=== PATIENT | male | born 1985 | race Hispanic/Latino ===

== ENCOUNTER 2022-08-21 21:39 | Observation (INO) | payer OTHER ==
[2022-08-21] MEDS ORDERED: ASPIRIN 81 MG CHEWABLE TABLET ONE (22:05)
[2022-08-21] MEDS ORDERED: MORPHINE 4 MG/ML SYR ONE ×2 (22:18→23:18)
[2022-08-21] MEDS ORDERED: ONDANSETRON 4 MG/2 ML VIAL ONE (22:18)
[2022-08-21 22:30] LABS: Absolute Lymphocytes (CBC) 1.2 K/uL (0.7-4.9); Hematocrit 38.4 % (39.6-49.0); Lymphocytes % 23.3 % (15.3-44.8); MCV 76.1 fL (80-100); MPV 6.9 fL (7.6-11.3); RBC Red Blood Cell Count 5.04 M/uL (4.33-5.43)
--- NOTE | 2022-08-21 22:38 | RAD REPORT ---
EXAM DESCRIPTION: Noe Single View08/21/2022 10:27 pm CLINICAL HISTORY: Chest pain COMPARISON: none FINDINGS: The lungs appear clear of acute infiltrate. The heart is normal size IMPRESSION: No acute abnormalities displayed
[2022-08-21 22:50] LABS: ALT/SGPT 25 U/L (12-78); AST/SGOT 10 U/L (15-37); Albumin 4.1 g/dL (3.4-5.0); Alkaline Phosphatase 89 U/L (45-117); BUN Blood Urea Nitrogen 13 mg/dL (7-18); Bicarbonate 30 mmol/L (21-32); Bilirubin Direct < 0.1 mg/dL (0-0.2); Bilirubin Total 0.2 mg/dL (0.2-1.0); Glomerular Filtration Rate 87 ml/min (=/>90); Glucose Level 72 mg/dL (74-106); NT PRO-BNP < 5 pg/mL (<125); Potassium 3.7 mmol/L (3.5-5.1); Sodium Level 139 mmol/L (136-145); Troponin High Sensitivity 4.9 pg/mL (<58.9)
[2022-08-21 23:18] LABS: Protime INR 2.06
[2022-08-21 23:39] LABS: Barbiturates NEGATIVE (NEGATIVE); Benzodiazepines NEGATIVE (NEGATIVE); Cocaine NEGATIVE (NEGATIVE); METHAMPHETAM NEGATIVE (NEGATIVE); Methadone NEGATIVE (NEGATIVE); Opiates POSITIVE (NEGATIVE); Phencyclidine NEGATIVE (NEGATIVE); THC Cannibis NEGATIVE (NEGATIVE)
--- NOTE | 2022-08-22 00:20 | ER ---
Nurse's Notes [facility] Name: Juanpablo Dewitt Age: 37 yrs Sex: Male : 1985 Arrival Date: 08/21/2022 Time: 21:40 Bed 13 Private MD: Diagnosis: Chest pain, unspecified;Syncope Presentation: 08/21 21:50 Chief complaint: Sudden onset left sided chest pain that radiates to left arm and neck hb x 1 hour. Pain partially and briefly relieved by Nitro SL x 4. Hx of [place]. Coronavirus screen: At this time, the client does not indicate any symptoms associated with coronavirus-19. Ebola Screen: No symptoms or risks identified at this time. Risk Assessment: Do you want to hurt yourself or someone else? Patient reports no desire to harm self or others. Onset of symptoms was August 21, 2022. 21:50 Method Of Arrival: Wheelchair hb 21:50 Acuity: ERIBERTO 3 hb 23:06 Initial Sepsis Screen: Does the patient meet any 2 criteria? No. Patient's initial ha1 sepsis screen is negative. Does the patient have a suspected source of infection? No. Patient's initial sepsis screen is negative. Historical: - Allergies: 21:52 Iodinated Contrast Media - IV Dye; hb 21:52 Iodine; hb 21:52 NSAIDS; hb 21:52 Aspirin; hb 21:52 ACETAMINOPHEN; hb 21:52 tramadol; hb 21:52 Adhesives; hb 21:52 PORK/PORCINE PRODUCT DERIVATIVES; hb 21:52 KETAMINE; hb - PMHx: 21:52 Myocardial infarction; hb Screenin:50 Abuse screen: Denies threats or abuse. Denies injuries from another. Nutritional ha1 screening: No deficits noted. Tuberculosis screening: No symptoms or risk factors identified. Assessment: 21:50 General: Appears uncomfortable, Behavior is calm, cooperative. Pain: Complains of pain ha1 in chest Pain does not radiate. Pain at worst was 10 out of 10 on a pain scale. Quality of pain is described as pressure, Pain began suddenly. Neuro: Level of Consciousness is awake, alert, obeys commands, Oriented to person, place, time, situation. Cardiovascular: Reports chest pain, Heart tones S1 S2 present Capillary refill < 3 seconds Patient's skin is warm and dry. Respiratory: Airway is patent Trachea midline Respiratory effort is even, unlabored, Respiratory pattern is regular, symmetrical. GI: No signs and/or symptoms were reported involving the gastrointestinal system. Abdomen is non-distended, obese. : No signs and/or symptoms were reported regarding the genitourinary system. EENT: No deficits noted. No signs and/or symptoms were reported regarding the EENT system. Derm: Skin is normal. Musculoskeletal: Circulation, motion, and sensation intact. Range of motion: intact in all extremities. 22:45 Reassessment: Patient and/or family updated on plan of care and expected duration. Pain ha1 level reassessed. Patient is alert, oriented x 3, equal unlabored respirations, skin warm/dry/pink. pain 5/10 Patient states feeling better. 23:07 General: Patient requested more pain medication. Provider notified.. tw5 23:38 Reassessment: Patient and/or family updated on plan of care and expected duration. Pain ha1 level reassessed. Patient is alert, oriented x 3, equal unlabored respirations, skin warm/dry/pink. pain 6/10 Patient states feeling better. 08/22 00:35 Reassessment: Patient and/or family updated on plan of care and expected duration. Pain ha1 level reassessed. Patient is alert, oriented x 3, equal unlabored respirations, skin warm/dry/pink. getting ultrasound. Vital Signs: 08/21 21:50 BP 139 / 71; Pulse 90; Resp 16; Temp 97.1; Pulse Ox 100% on R/A; Weight 104.33 kg; hb Height 5 ft. 10 in. (177.80 cm); Pain 10/10; 22:15 BP 109 / 50; Pulse 81; Resp 16 S; Pulse Ox 98% on R/A; ha1 22:45 BP 117 / 62; Pulse 79; Resp 16 S; Pulse Ox 100% on R/A; ha1 23:38 BP 118 / 60; Pulse 80; Resp 17 S; Pulse Ox 100% on R/A; ha1 08/22 00:35 BP 116 / 62; Pulse 79; Resp 16 S; Pulse Ox 100% on R/A; ha1 08/21 21:50 Body Mass Index 33.00 (104.33 kg, 177.80 cm) ED Course: 08/21 21:40 Patient arrived in ED. as 21:52 Triage completed. hb 21:53 Arm band placed on. hb 21:53 Patient has correct armband on for positive identification. Allergy band placed. Bed in ha1 low position. Call light in reach. Side rails up X 1. 21:57 Sg Barry PA is PHCP. cp 21:57 Gertrude Artis MD is Attending Physician. cp 22:27 XRAY Chest (1 view) In Process Unspecified. EDMS 23:23 XRAY Humerus LEFT In Process Unspecified. EDMS 23:37 Notified ED physician of a critical lab result(s). D-Dimer 564. tw5 23:44 CT Head C Spine In Process Unspecified. EDMS 08/22 00:19 Julio Ly MD is Hospitalizing Provider. cp 00:22 Gabe Doran is Hospitalizing Provider. la1 00:42 US Extremity Venous W Compression Malick In Process Unspecified. EDMS 01:34 Marcy Shah, ANAT is Primary Nurse. ke1 20:58 Patient admitted, IV remains in place. ke1 Administered Medications: 08/21 22:23 Drug: Zofran (Ondansetron) 4 mg Route: IVP; Site: right antecubital; ha1 22:45 Follow up: Response: No adverse reaction ha1 22:25 Drug: morphine 4 mg Route: IVP; Infused Over: 4 mins; Site: right antecubital; ha1 22:45 Follow up: Response: No adverse reaction; Temperature is decreased; RASS: Alert and ha1 Calm (0) 22:26 Not Given (Pt is allergicc): Aspirin Chewable Tablet 324 mg PO once; 81 mg tablets x 4 jb4 23:16 Drug: morphine 4 mg Route: IVP; Infused Over: 4 mins; Site: right antecubital; ha1 23:38 Follow up: Response: No adverse reaction; Pain is decreased; RASS: Alert and Calm (0) ha1 Medication: 08/22 20:58 VIS not applicable for this client. ke1 Outcome: 00:20 Decision to Hospitalize by Provider. cp 20:58 Admitted to Med/surg accompanied by nurse. ke1 20:58 Condition: good 20:58 Instructed on the need for admit. 20:58 Patient left the ED. ke1 Signatures: Dispatcher [employer] EDBreana Saavedra Attema, Michelet, PADDER-C PADDER-Cla1 Sg Barry PA PA cp Baxter, Heather, RN RN Carline Martinez tw5 Marcy Shah RN RN ke1 Denae Chou RN RN ha1 Ab Bloom RN jb4
--- NOTE | 2022-08-22 00:21 | EDPHYS ---
Physician Documentation [facility] Name: Juanpablo Dewitt Age: 37 yrs Sex: Male : 1985 Arrival Date: 08/21/2022 Time: 21:40 Bed 13 Private MD: ED Physician Gertrude Artis HPI: 08/21 22:00 This 37 yrs old Male presents to ER via Wheelchair with complaints of Chest cp Pain, Shortness Of Breath, Passed Out Prior To Arrival. 22:00 The patient or guardian reports chest pain that is located primarily in the anterior cp chest wall, left. 22:00 The pain radiates to cp 22:00 Associated signs and symptoms: Pertinent positives: syncope. The chest pain is cp described as constant. Patient reports left side chest pain started this evening. Pain started causing patient to lose consciousness. Historical: - Allergies: 21:52 Iodinated Contrast Media - IV Dye; hb 21:52 Iodine; hb 21:52 NSAIDS; hb 21:52 Aspirin; hb 21:52 ACETAMINOPHEN; hb 21:52 tramadol; hb 21:52 Adhesives; hb 21:52 PORK/PORCINE PRODUCT DERIVATIVES; hb 21:52 KETAMINE; hb - PMHx: 21:52 Myocardial infarction; hb ROS: 22:05 Constitutional: Negative for body aches, chills, fever, poor PO intake. cp 22:05 Cardiovascular: Positive for chest pain, Negative for edema, palpitations. cp 22:05 Eyes: Negative for injury, pain, redness, and discharge. cp 22:05 ENT: Negative for drainage from ear(s), ear pain, sore throat, difficulty swallowing, difficulty handling secretions. 22:05 Respiratory: Positive for shortness of breath, Negative for cough, wheezing. 22:05 Abdomen/GI: Positive for nausea, Negative for abdominal pain, vomiting, diarrhea, cp constipation. 22:05 MS/extremity: Positive for injury or acute deformity, ecchymosis, of the left arm, radiating pain. 22:05 Neuro: Positive for headache, syncope, Negative for altered mental status, numbness, weakness. 22:05 All other systems are negative. Exam: 22:05 ECG was reviewed by the Attending Physician. cp 22:11 Constitutional: The patient appears in no acute distress, alert, awake, cp non-diaphoretic, non-toxic, well developed, well nourished. 22:11 Head/Face: Normocephalic, atraumatic. cp 22:11 Eyes: Periorbital structures: appear normal, Conjunctiva: normal, no exudate, no injection, Sclera: no appreciated abnormality, Lids and lashes: appear normal, bilaterally. 22:11 ENT: External ear(s): are unremarkable, Nose: is normal, Mouth: Lips: moist, Oral mucosa: pink and intact, moist, Posterior pharynx: Airway: no evidence of obstruction, patent. 22:11 Neck: ROM/movement: is normal, is supple, without pain, no range of motions limitations, no nuchal rigidity. 22:11 Chest/axilla: Inspection: normal, Palpation: is normal, no crepitus, no tenderness. 22:11 Cardiovascular: Rate: normal, Rhythm: regular, Edema: is not appreciated, JVD: is not appreciated. 22:11 Respiratory: the patient does not display signs of respiratory distress, Respirations: normal, no use of accessory muscles, no retractions, labored breathing, is not present, Breath sounds: are clear throughout, no decreased breath sounds, no stridor, no wheezing. 22:11 Abdomen/GI: Inspection: abdomen appears normal, Palpation: abdomen is soft and non-tender, in all quadrants. 22:11 Back: pain, that is moderate, ROM is normal. 22:11 Neuro: Orientation: to person, place \T\ time. Mentation: is normal, Motor: moves all fours, strength is normal, Sensation: is normal. Vital Signs: 21:50 BP 139 / 71; Pulse 90; Resp 16; Temp 97.1; Pulse Ox 100% on R/A; Weight 104.33 kg; hb Height 5 ft. 10 in. (177.80 cm); Pain 10/10; 22:15 BP 109 / 50; Pulse 81; Resp 16 S; Pulse Ox 98% on R/A; ha1 22:45 BP 117 / 62; Pulse 79; Resp 16 S; Pulse Ox 100% on R/A; ha1 23:38 BP 118 / 60; Pulse 80; Resp 17 S; Pulse Ox 100% on R/A; ha1 08/22 00:35 BP 116 / 62; Pulse 79; Resp 16 S; Pulse Ox 100% on R/A; ha1 08/21 21:50 Body Mass Index 33.00 (104.33 kg, 177.80 cm) hb MDM: 08/21 22:06 Patient medically screened. cp 23:50 Data reviewed: vital signs, nurses notes, lab test result(s), EKG, radiologic studies, cp plain films. 23:50 Test interpretation: by ED physician or midlevel provider: ECG, plain radiologic cp studies. 08/21 21:53 Order name: Basic Metabolic Panel; Complete Time: 22:53 sd2 08/21 22:53 Interpretation: Normal except: GLUC 72; GFR 87. cp 08/21 21:53 Order name: CBC with Diff; Complete Time: 22:53 sd2 08/21 22:54 Interpretation: Normal except: HGB 12.4; HCT 38.4; MCV 76.1; MCH 24.6; RDW 19.3; MPV cp 6.9. 08/21 21:53 Order name: LFT's; Complete Time: 22:53 sd2 08/21 22:54 Interpretation: Normal except: AST 10; GLOB 3.9. cp 08/21 21:53 Order name: Magnesium; Complete Time: 22:53 sd2 08/21 21:53 Order name: NT PRO-BNP; Complete Time: 22:53 sd2 08/21 21:53 Order name: Troponin HS; Complete Time: 22:53 sd2 08/21 22:55 Interpretation: Within normal limits: Troponin HS 4.9. cp 08/21 22:08 Order name: UDS; Complete Time: 23:39 cp 08/21 23:40 Interpretation: OPI POSITIVE; Reviewed. cp 08/21 22:08 Order name: COVID-19/FLU A+B cp 08/21 22:08 Order name: Ptt, Activated; Complete Time: 22:53 cp 08/21 22:54 Interpretation: PTT 52.8; Reviewed. cp 08/21 22:56 Order name: PT-INR; Complete Time: 23:39 cp 08/21 22:56 Order name: DD; Complete Time: 23:39 cp 08/21 23:40 Interpretation: Abnormal: D-DIMER 564. cp 08/22 04:11 Order name: Protime (+INR) EDMS 08/22 04:23 Order name: CBC with Automated Diff EDMS 08/22 04:29 Order name: Comprehensive Metabolic Panel EDNM 08/21 21:53 Order name: XRAY Chest (1 view); Complete Time: 22:53 sd2 08/21 23:41 Interpretation: Report review. cp 08/21 21:53 Order name: EKG; Complete Time: 21:54 sd2 08/21 21:53 Order name: Cardiac monitoring; Complete Time: 22:01 sd2 08/21 21:53 Order name: EKG - Nurse/Tech; Complete Time: 22:01 sd2 08/21 21:53 Order name: IV Saline Lock; Complete Time: 22:36 sd2 08/21 21:53 Order name: Labs collected and sent; Complete Time: 22:36 sd2 08/21 21:53 Order name: O2 Per Protocol; Complete Time: 22:01 sd2 08/21 22:59 Order name: XRAY Humerus LEFT 08/21 22:59 Order name: CT Head C Spine 08/21 23:39 Order name: US Extremity Venous W Compression Malick 08/22 04:29 Order name: Troponin High Sensitivity [facility] 08/22 09:15 Order name: Troponin High Sensitivity [facility] 08/21 21:53 Order name: O2 Sat Monitoring; Complete Time: 22:01 sd2 EC:05 Rate is 78 beats/min. Rhythm is regular. MN interval is normal. QRS interval is normal. cp QT interval is normal. T waves are Inverted in leads III, aVR. Interpreted by me. Reviewed by me. Administered Medications: 22:23 Drug: Zofran (Ondansetron) 4 mg Route: IVP; Site: right antecubital; ha1 22:45 Follow up: Response: No adverse reaction ha1 22:25 Drug: morphine 4 mg Route: IVP; Infused Over: 4 mins; Site: right antecubital; ha1 22:45 Follow up: Response: No adverse reaction; Temperature is decreased; RASS: Alert and ha1 Calm (0) 22:26 Not Given (Pt is allergicc): Aspirin Chewable Tablet 324 mg PO once; 81 mg tablets x 4 jb4 23:16 Drug: morphine 4 mg Route: IVP; Infused Over: 4 mins; Site: right antecubital; ha1 23:38 Follow up: Response: No adverse reaction; Pain is decreased; RASS: Alert and Calm (0) ha1 Disposition Summary: 08/22/22 00:20 Hospitalization Ordered Condition: Stable cp Problem: new cp Symptoms: have improved cp Bed/Room Type: Standard cp Hospitalization Status: Observation(08/22/22 00:21) la1 Provider: Gabe Doran(08/22/22 00:22) la1 Location: Telemetry/MedSurg (observation)(08/22/22 18:00) eb Room Assignment: 403(08/22/22 18:00) eb Diagnosis - Chest pain, unspecified cp - Syncope cp Forms: - Medication Reconciliation Form cp - SBAR form cp Signatures: Dispatcher [employer] EDMS Michelet Coughlin, [place]-C [place]-Cla1 Sg Barry PA PA cp Garcia, Cindy, RN RN cg Nguyen Alexandre RN RN hb Botello, Elizabeth eb Dunlop, Stephanie, MD MD sd2 Denae Chou RN RN ha1 Ab Bloom RN jb4 Corrections: (The following items were deleted from the chart) 23:40 23:40 Reviewed. cp cp 08/22 00:21 00:20 Inpatient Admission cp la1 : 00:20 Julio Ly cp la1 00:30 08/21 22:05 Cardiovascular: Positive for chest pain, cp cp 08/22 00:59 00:20 Telemetry/MedSurg (observation) cp cg 00:59 00:20 cp cg 18:00 00:59 [facility] ER HOLD cg eb 18:00 00:59 ERHOLD- cg eb
[2022-08-22 00:43] LABS: SARS-COV-2 RT PCR NEGATIVE (NEGATIVE)
[2022-08-22] MEDS ORDERED: PROMETHAZINE 25 MG TABLET PO PRN (02:21)
[2022-08-22] MEDS ORDERED: ALBUTEROL 2.5 MG/3 ML NEB SOL NEB PRN (02:21)
--- NOTE | 2022-08-22 02:33 | P.HP ---
Certification for Inpatient Patient admitted to: Observation With expected LOS: <2 Midnights Patient will require the following post-hospital care: None Practitioner: I am a practitioner with admitting privileges, knowledge of patient current condition, hospital course, and medical plan of care. Services: Services provided to patient in accordance with Admission requirements found in Title 42 Section 412.3 of the Code of Federal Regulations Patient History Date of Service: 08/22/22 Reason for admission: Chest pain, syncope History of Present Illness: 37-year-old male with history of factor V Leiden, chronic CHFunknown EF, hypertension, hyperlipidemia, GERD, chronic pain, CAD, MIRA presents emergency department for chest pain, syncope. He reports that he was eating dinner when he began to experience sharp pain with severe heaviness in his chest followed by 2 syncopal episodes. He denies similar episodes in the past he reports he has been compliant with his Coumadin for factor V Leiden his labs were significant for INR 2.06 D-dimer 564 high-sensitivity troponin 4.9 initially chest x-ray negative for acute findings CT head/C-spine negative for acute findings, bilateral venous Doppler lower extremities negative for acute findings/DVT. Patient allergic to IV iodine, ED provider wishes to admit under observation for chest pain, syncope, elevated D-dimer. Allergies acetaminophen Allergy (Verified 08/22/22 02:21) Anaphylaxis adhesive Allergy (Verified 08/22/22 02:21) Anaphylaxis aspirin Allergy (Verified 08/22/22 02:21) Anaphylaxis Iodinated Contrast Media Allergy (Verified 08/22/22 02:21) Anaphylaxis ketamine Allergy (Verified 08/22/22 02:21) Anaphylaxis NSAIDS (Non-Steroidal Anti-Inflamma Allergy (Verified 08/22/22 02:21) Anaphylaxis Pork/Porcine Containing Products Allergy (Verified 08/22/22 02:21) Anaphylaxis tramadol Allergy (Verified 08/22/22 02:21) Anaphylaxis - Past Medical/Surgical History -: CHFunknown EF -: CAD -: Factor V Leiden on warfarin -: Chronic pain -: MIRA -: Hypertension -: Hyperlipidemia -: Back surgery -: Hip surgery Psychosocial/ Personal History: Patient recently moved back from the [facility], lives alone. - Family History Father -: Blood disorders - Social History Smoking Status: Never smoker Alcohol use: No CD- Drugs: No Caffeine use: Yes Place of Residence: Home Review of Systems 10-point ROS is otherwise unremarkable Cardiovascular: Chest Pain, Other (Syncope) Physical Examination - Physical Exam General: Alert, In no apparent distress, Oriented x3 HEENT: Atraumatic, PERRLA, Mucous membr. moist/pink, EOMI, Sclerae nonicteric Neck: Supple, 2+ carotid pulse no bruit, No LAD, Without JVD or thyroid abnormality Respiratory: Clear to auscultation bilaterally, Normal air movement Cardiovascular: Regular rate/rhythm, Normal S1 S2 Gastrointestinal: Normal bowel sounds, No tenderness Musculoskeletal: No tenderness Integumentary: No rashes Neurological: Normal speech, Normal strength at 5/5 x4 extr, Normal tone, Normal affect - Studies Laboratory Data (last 24 hrs) 08/21/22 22:08: PT 22.7 H, INR 2.06 08/21/22 22:08: APTT 52.8 H 08/21/22 22:08: WBC 5.00, Hgb 12.4 L, Hct 38.4 L, Plt Count 400 08/21/22 22:08: Sodium 139, Potassium 3.7, BUN 13, Creatinine 1.11, Glucose 72 L, Magnesium 2.0, Total Bilirubin 0.2, AST 10 L, ALT 25, Alkaline Phosphatase 89 Assessment and Plan - Plan Assessment: Chest pain, syncope, elevated D-dimer Chronic CHFunknown EF Hypertension Hyperlipidemia History of CAD Chronic pain MIRA GERD Plan: Chest pain, syncope, elevated D-dimer: Trend troponins, monitor on telemetry, cardiology consult in place. Echocardiogram/VQ scan ordered. Patient without any hypoxia, tachycardia INR is 2 he reports his goal is 2.5-3, he reports multiple PE/DVT in the past. Negative for DVT bilateral lower extremity. Chronic CHFunknown EF: No medications continued including Coreg, Lasix. Hypertension: Continue home medications. Hyperlipidemia:Continue home medications. History of CAD: Monitor on telemetry, trend troponins. Cardiology consult in place. Chronic pain: Continue medications once verified. MIRA: As needed CPAP at night. GERD: Continue home meds. DVT PPX: Continue warfarin 5 mg p.o. daily, monitor INR daily. Code status: Full Discharge Plan: Home Plan to discharge in: 24 Hours - Advance Directives Does patient have a Living Will: No Does patient have a Durable POA for Healthcare: No - Code Status/Comfort Care Code Status Assessed: Yes (Full code) Critical Care: No Time Spent Managing Pts Care (In Minutes): 70
[2022-08-22] MEDS ORDERED: PROMETHAZINE INJ 25 MG/ML AMP ONE (02:52)
[2022-08-22] MEDS ORDERED: MORPHINE 2 MG/ML SYR ONE ×4 (02:52→18:41)
[2022-08-22] MEDS: MORPHINE 2 MG/ML SYR IV PRN ×4 (03:01→22:16)
[2022-08-22 04:08] VITALS: BMI 33.0
[2022-08-22 04:11] LABS: Protime INR 1.95
[2022-08-22 04:22] LABS: Absolute Lymphocytes (CBC) 1.6 K/uL (0.7-4.9); Hematocrit 35.5 % (39.6-49.0); Lymphocytes % 34.1 % (15.3-44.8); MCV 75.8 fL (80-100); MPV 7.2 fL (7.6-11.3); RBC Red Blood Cell Count 4.69 M/uL (4.33-5.43)
[2022-08-22 04:28] LABS: Albumin 3.6 g/dL (3.4-5.0); Bilirubin Total 0.3 mg/dL (0.2-1.0); Potassium 3.9 mmol/L (3.5-5.1); Protein, Total 7.3 g/dL (6.4-8.2); Troponin High Sensitivity 5.2 pg/mL (<58.9)
[2022-08-22] MEDS ORDERED: FUROSEMIDE 20 MG TABLET ONE ×2 (08:25→17:49)
[2022-08-22] MEDS ORDERED: carvediloL 6.25 MG TAB ONE (08:25)
[2022-08-22] MEDS: carvediloL 6.25 MG TAB PO SCH ×2 (08:35→22:21)
[2022-08-22] MEDS: FUROSEMIDE 20 MG TABLET PO SCH ×2 (08:36→17:00)
--- NOTE | 2022-08-22 12:58 | P.PN ---
Date of Service: 08/22/22 Patient seen and examined. He reports chest pain with exertion. History of factor V Leyden deficiency prior history of multiple pulmonary embolism. Diagnosis: Chest pain. Factor V Leyden deficiency. History of thromboembolism. Plan: Venous Dopplers negative for DVT. Troponin trended negative Seen by cardiology-Dr. Stringer who is recommending stress test in a.m. Resume home medications. V/Q scan ordered to assess for pulm embolism. Since patient has a history of PE in the past and already on anticoagulation, I would prefer a nuclear stress test first and if negative, do VQ scan to rule out PE. Resume home medications.
[2022-08-22] MEDS: SUCRALFATE 1 GM TABLET PO SCH ×3 (13:00→22:22)
[2022-08-22] MEDS ORDERED: SUCRALFATE 1 GM TABLET ONE ×2 (13:58→17:49)
[2022-08-22] MEDS ORDERED: ONDANSETRON 4 MG/2 ML VIAL ONE (14:45)
[2022-08-22] MEDS: ONDANSETRON 4 MG/2 ML VIAL IV PRN ×2 (15:05→22:16)
[2022-08-22] MEDS ORDERED: WARFARIN SODIUM 5 MG TAB PO SCH ×2 (17:00)
[2022-08-22] MEDS ORDERED: DIAZEPAM 10 MG PO SCH (17:00)
[2022-08-22] MEDS: methocarbamoL 750 MG TAB PO SCH (17:00)
[2022-08-22] MEDS: GABAPENTIN 400 MG CAP PO SCH (17:00)
[2022-08-22] MEDS ORDERED: methocarbamoL 750 MG TAB ONE (17:50)
[2022-08-22] MEDS ORDERED: WARFARIN SODIUM 5 MG TAB ONE (17:50)
[2022-08-22] MEDS ORDERED: GABAPENTIN 400 MG CAP ONE (17:54)
[2022-08-22] MEDS ORDERED: carvediloL 6.25 MG TAB PO SCH (21:00)
[2022-08-22] MEDS: ATORVASTATIN 40 MG TAB PO SCH (22:21)
--- NOTE | 2022-08-22 22:30 | CON ---
Date of Consultation: 08/22/2022 I saw the patient on 08/22/2022. Reason For Consultation: Chest pain and syncope. History Of Present Illness: Mr. Dewitt is 37 years old, has a history of factor V Leiden deficiency for which he takes Coumadin. He has a history of congestive heart failure, presumably ejection frac tion 43% at one point, although according to him it is now normalized. He has a history of coronary artery disease, status post angioplasty but no stent. He does not have a local mold bunch trimmer or [facility] y physician. He came in with a syncopal episode without any preceding symptoms. Has been having mo st pain since admission but yet his EKG, troponin, chest x-ray are all negative. His D-dimer is 564. He tested positive for opiates on his urinalysis. Denied PND, orthopnea, pedal edema, palpitations , fever, or chills. Allergies: TO TYLENOL, NONSTEROIDAL ANTI-INFLAMMATORY AGENT, ASPIRIN, IODINE, AND ADHESIVE. Medications: Supposed to be Coumadin, Coreg, Lipitor, Plavix, Valium, Lasix, and Ranexa. Physical Examination: Vital Signs: Stable, afebrile. HEENT: Negative. Neck: Supple. No bruits. Chest: Clear. Cardiac: Normal. Abdomen: Benign. Extremities: Reveal no clubbing, cyanosis, or edema. Diagnostic Data: As stated above. EKG is nonspecific. Impression And Plan: This is a patient with history of coronary artery disease, status post angiopla sty, history of congestive heart failure that has resolved, history of dyslipidemia, anxiety, factor V Leiden deficiency. He needs to continue his Coumadin, Lipitor, Plavix, Coreg, Lasix, and Ranexa. He has anxiety disorder for which he takes Valium. He has positive drug screen on urinalysis. I thi nk he deserves to have an echocardiogram and a Lexiscan to define his coronary situation and wall mot ion and he should probably have an outpatient event monitors down the road. We will see what those t ests show before making further decisions. GARTH/MODL Voice ID: [id number] Report ID: [id number]
[2022-08-22 23:37] VITALS: O2SAT 98
[2022-08-23] MEDS: GABAPENTIN 400 MG CAP PO SCH ×3 (00:01→16:56)
[2022-08-23] MEDS: methocarbamoL 750 MG TAB PO SCH ×3 (00:01→16:56)
[2022-08-23] MEDS: ONDANSETRON 4 MG/2 ML VIAL IV PRN ×2 (03:34→21:07)
[2022-08-23] MEDS: MORPHINE 2 MG/ML SYR IV PRN ×2 (03:34→07:54)
[2022-08-23 04:08] LABS: Absolute Lymphocytes (CBC) 1.6 K/uL (0.7-4.9); Hematocrit 34.1 % (39.6-49.0); MCV 75.3 fL (80-100); RBC Red Blood Cell Count 4.52 M/uL (4.33-5.43)
[2022-08-23 04:15] LABS: Protime INR 1.53
[2022-08-23 04:32] LABS: Albumin 3.4 g/dL (3.4-5.0); Bilirubin Total 0.3 mg/dL (0.2-1.0); Potassium 3.8 mmol/L (3.5-5.1)
[2022-08-23] MEDS: SUCRALFATE 1 GM TABLET PO SCH ×4 (07:52→21:08)
[2022-08-23] MEDS: CLOPIDOGREL 75 MG TABLET PO SCH (07:52)
[2022-08-23] MEDS: FUROSEMIDE 20 MG TABLET PO SCH ×2 (07:52→16:56)
[2022-08-23] MEDS: carvediloL 6.25 MG TAB PO SCH ×2 (07:52→21:08)
[2022-08-23] MEDS: PANTOPRAZOLE 40MG TABLET PO SCH (07:53)
[2022-08-23] MEDS ORDERED: FUROSEMIDE 20 MG TABLET PO SCH (09:00)
[2022-08-23] MEDS ORDERED: REGADENOSON 0.4 MG/5 ML SYR IV ONE (09:30)
[2022-08-23] MEDS ORDERED: MORPHINE 2 MG/ML SYR IV ONE (09:52)
--- NOTE | 2022-08-23 11:57 | RAD REPORT ---
EXAM DESCRIPTION: CT Head and Cervical Spine Without Intravenous Contrast CLINICAL HISTORY: The patient is 37 years old and is Male; syncope TECHNIQUE: Axial computed tomography images of the head/brain and cervical spine without intravenous contrast. Sagittal and coronal reformatted images were created and reviewed. This CT exam was pe rformed using one or more of the following dose reduction techniques: automated exposure control, a djustment of the mA and/or kV according to patient size, and/or use of iterative reconstruction techn ique. COMPARISON: No relevant prior studies available. FINDINGS: Brain: Unremarkable. No hemorrhage. No significant white matter disease. No edema. Ventricles: Unremarkable. No ventriculomegaly. Skull: No acute fracture. Sinuses: Unremarkable as visualized. No acute sinusitis. Mastoid air cells: Unremarkable as visualized. No mastoid effusion. Vertebrae: Unremarkable. No acute fracture. Normal alignment. Discs/spinal canal/neural foramina: No acute findings. No spinal canal stenosis. Soft tissues: Unremarkable. IMPRESSION: No acute intracranial abnormality. No acute findings in the cervical spine. Electronically signed by: Samuel Soni MD 08/22/2022 12:14 AM PLATE CORRECTOR Due to temporary technical issues with the PACS/Fluency reporting system, reports are being signed by the in house radiologists without review as a courtesy to insure prompt reporting. The interpreting radiologist is fully responsible for the content of the report.
--- NOTE | 2022-08-23 12:15 | RAD REPORT ---
EXAM DESCRIPTION: US Duplex Bilateral Lower Extremities Veins CLINICAL HISTORY: The patient is 37 years old and is Male; PAIN TECHNIQUE: Real-time duplex ultrasound scan of the bilateral lower extremity veins integrating B-mod e two-dimensional vascular structure, Doppler spectral analysis, color flow Doppler imaging and compr ession. COMPARISON: No relevant prior studies available. FINDINGS: RIGHT DEEP VEINS: Unremarkable. No DVT in the right common femoral, femoral, proximal deep femoral or popliteal veins. The veins demonstrate normal color flow, are normally compressible , with normal phasic flow and/or augmentation response. RIGHT SUPERFICIAL VEINS: Unremarkable. No thrombus in the visualized right great saphenous vein . LEFT DEEP VEINS: Unremarkable. No DVT in the left common femoral, femoral, proximal deep femora l or popliteal veins. The veins demonstrate normal color flow, are normally compressible, with norm al phasic flow and/or augmentation response. LEFT SUPERFICIAL VEINS: Unremarkable. No thrombus in the visualized left great saphenous vein. SOFT TISSUES: No acute findings. No popliteal cyst. IMPRESSION: Normal bilateral lower extremity duplex venous ultrasound. Electronically signed by: Cee Ingram MD 08/22/2022 1:03 AM WIRE SPOOLER Due to temporary technical issues with the PACS/Fluency reporting system, reports are being signed by the in house radiologists without review as a courtesy to insure prompt reporting. The interpreting radiologist is fully responsible for the content of the report.
--- NOTE | 2022-08-23 12:35 | RAD REPORT ---
EXAM DESCRIPTION: Humerus Left 08/21/2022 11:41 PM FLANGER CLINICAL HISTORY: 37 years, Male, PAIN COMPARISON: None. FINDINGS: 2 X-ray views of the left humerus ( (frontal and lateral views) were performed. No acute bony injuries were demonstrated. No gross articular or soft tissue abnormality is identifi ed. There are no gross intraosseous lesions. No periosteal reaction were seen. IMPRESSION: Unremarkable left humerus. Electronically signed by: Eduardo Quiroga MD 08/21/2022 11:41 PM FLANGER Due to temporary technical issues with the PACS/Fluency reporting system, reports are being signed by the in house radiologists without review as a courtesy to insure prompt reporting. The interpreting radiologist is fully responsible for the content of the report.
--- NOTE | 2022-08-23 12:50 | P.DS ---
Admission Date: 08/22/22 Discharge Date: 08/23/22 Disposition: ROUTINE DISCHARGE Discharge Condition: FAIR Reason for Admission: Chest pain, syncope - Problems (1) Chest pain Current Visit: Yes Status: Acute (2) Syncope Current Visit: Yes Status: Acute (3) Factor V Leiden Current Visit: Yes Status: Acute (4) History of pulmonary embolism Current Visit: Yes Status: Acute (5) History of DVT (deep vein thrombosis) Current Visit: Yes Status: Acute Brief History of Present Illness: 37-year-old male who reports history of factor V Leiden, chronic CHFunknown EF, hypertension, hyperlipidemia, GERD, chronic pain, CAD, MIRA presented emergency department for chest pain, syncope. He reports that he was eating dinner when he began to experience sharp pain with severe heaviness in his chest followed by 2 syncopal episodes. He denies similar episodes in the past and he reports he has been compliant with his Coumadin for factor V Leiden his labs were significant for INR 2.06 D-dimer 564 high-sensitivity troponin 4.9. Initially chest x-ray negative for acute findings CT head/C-spine negative for acute findings, bilateral venous Doppler lower extremities negative for acute findings/DVT. Patient allergic to IV iodine. Patient hospitalized for further management. Hospital Course: Patient placed under observation on the medical floor. Troponin trended negative. Patient seen and evaluated by cardiology who recommended echocardiogram and nuclear stress test. Echocardiogram was done and the results is pending to be followed. Nuclear stress test was ordered but patient could not do it because he drank coffee earlier in the morning before he was taking to the nuclear department for a stress test. Case discussed with Dr. Stringer who recommended follow-up with him in the office as soon as possible for arrangement for stress test. Patient informed of Dr. Stringer's recommendation. His warfarin was continued during the hospital stay. His INR was therapeutic on presentation. Patient stated he has been on 5 mg of warfarin which was con tinued during the hospital stay. I recommended DOAC but he stated DOAC has not worked for him. Patient stated he does not live in this area and I am unable to refer him to a PCP. He is informed the important need to establish care with a primary care physician who will monitor his anticoagulation to make sure that it is therapeutic. Meanwhile he was given an extra dose 2.5 mg Coumadin for INR of 1.53 today. Would recommend INR check within the next 2 days for Coumadin dose adjustment. He is referred to see Dr. Stringer within 1 week for arrangement for stress test. Vital Signs/Physical Exam: Temp Pulse Resp BP Pulse Ox 97 F 73 18 119/64 98 08/23/22 08:00 08/23/22 08:00 08/23/22 10:53 08/23/22 08:00 08/23/22 10:53 Laboratory Data at Discharge: WBC 4.30 K/uL (4.3-10.9) 08/23/22 03:44 Hgb 11.0 g/dL (13.6-17.9) L 08/23/22 03:44 Hct 34.1 % (39.6-49.0) L 08/23/22 03:44 Plt Count 353 K/uL (152-406) 08/23/22 03:44 PT 16.8 SECONDS (9.5-12.5) H 08/23/22 03:44 INR 1.53 08/23/22 03:44 APTT 52.8 SECONDS (24.3-36.9) H 08/21/22 22:08 Sodium 137 mmol/L (136-145) 08/23/22 03:44 Potassium 3.8 mmol/L (3.5-5.1) 08/23/22 03:44 BUN 15 mg/dL (7-18) 08/23/22 03:44 Creatinine 0.88 mg/dL (0.55-1.3) 08/23/22 03:44 Glucose 100 mg/dL (74-106) 08/23/22 03:44 Magnesium 2.0 mg/dL (1.8-2.4) 08/21/22 22:08 Total Bilirubin 0.3 mg/dL (0.2-1.0) 08/23/22 03:44 AST 6 U/L (15-37) L 08/23/22 03:44 ALT 26 U/L (12-78) 08/23/22 03:44 Alkaline Phosphatase 76 U/L (45-117) 08/23/22 03:44 Home Medications: Atorvastatin Calcium [Lipitor] 40 mg DAILY 08/22/22 Clopidogrel Bisulfate [Plavix] 75 mg DAILY 08/22/22 Diazepam [Valium] 10 mg PO Q8HR 08/22/22 Diphenhydramine HCl [Benadryl Allergy] 50 mg PO Q4HR PRN 08/22/22 Furosemide [Lasix] 20 mg PO DAILY 08/22/22 Gabapentin [Neurontin] 800 mg Q8HR 08/22/22 LORazepam [Ativan*] 1 mg PO Q4HR 08/22/22 Ondansetron [Zofran (Odt)*] 4 mg PO Q6HR 08/22/22 Pantoprazole Sodium [Protonix] 40 mg DAILY 08/22/22 Ranolazine [Ranolazine ER] 500 mg BID 08/22/22 Sucralfate [Carafate*] 1 g PO QID 08/22/22 Warfarin Sodium [Coumadin*] 5 mg PO DAILY 08/22/22 carvediloL [Coreg*] 6.25 mg BID 08/22/22 methocarbamoL [Robaxin*] 750 mg PO Q8HR 08/22/22 Diet: AHA Activity: Ad nate Followup: Abdulaziz Stringer MD [ACTIVE - CAN ADMIT] - 1 Week (Please call office for arrangement for stress test.) NONE,NONE [Primary Care Provider] - 1 Week ( Call for appointment.)
[2022-08-23] MEDS ORDERED: ALBUTEROL 2.5 MG/3 ML NEB SOL NEB PRN (14:00)
[2022-08-23] MEDS ORDERED: HYDROCODONE/APAP 5/325 MG TAB PO PRN (14:09)
[2022-08-23] MEDS: ENOXAPARIN 100 MG/ML SYR SQ SCH (14:36)
[2022-08-23] MEDS: OXYCODONE HCL 5 MG TAB PO PRN ×2 (14:36→21:09)
--- NOTE | 2022-08-23 15:33 | EKG ---
Test Date: 2022-08-21 Test Time: 21:57:56 City Dispatch Supervisor: ABAD MEASUREMENT RESULTS: Intervals: Rate: 78 AR: 166 QRSD: 88 QT: 336 QTc: 383 [place]: P: 26 AR: 166 QRS: 45 T: 8 INTERPRETIVE STATEMENTS: Normal sinus rhythm Normal ECG No previous ECG available for comparison Electronically Signed On 08-23-22 15:29:49 BUSINESS OFFICE SPECIALIST by Rj Coleman
--- NOTE | 2022-08-23 15:49 | P.PN ---
Subjective Date of Service: 08/23/22 Chief Complaint: Chest pain, syncope Patient is complaining of pain all other and utilizing IV morphine abdominal. He refused to go to the nuclear department for stress test unless he was given another shot of morphine in between scheduled doses.. He apparently refused for the stress after he was transported to the nuclear department stating he drank coffee earlier. He missed his Coumadin dose the night before admission. Physical Examination - Vital Signs Temperature: 97 F Blood Pressure: 119/64 Pulse: 73 Respirations: 18 Pulse Ox (%): 98 Assessment And Plan - Plan Physical Exam General: Alert, In no apparent distress, Oriented x3 Neck: No JVD elevation. Respiratory: Clear to auscultation bilaterally, Normal air movement Cardiovascular: Regular rate/rhythm, Normal S1 S2 Gastrointestinal: Normal bowel sounds, No tenderness Musculoskeletal: No tenderness Integumentary: No rashes Neurological: Normal speech, Normal strength at 5/5 x4 extr, Normal tone, Normal affect Diagnosis: Chest pain. Factor V Leyden deficiency. History of thromboembolism. Plan: Venous Dopplers negative for DVT. Troponin trended negative Seen by cardiology-Dr. Stringer who is recommending stress test in a.m. Stress test not done. Patient also refused exercise stress test. I am told the nuclear stress test machine is down. Discussed with Dr. Stringer recommend outpatient stress test at this time. INR is subtherapeutic today. Patient be given an extra dose Coumadin 2.5mg to add to usual home dose 5 mg daily today. We will also bridge with subcutaneous Lovenox injection. There is a reported allergy to pork and porcine related products but patient stated he has tolerated Lovenox injections in the past. Continue home medications. V/Q scan to assess for pulm embolism. Pain management as needed. Monitor PT and INR. Anticipating discharge to home tomorrow morning.
[2022-08-23] MEDS ORDERED: WARFARIN SODIUM 2.5 MG TAB PO SCH (17:00)
[2022-08-23] MEDS ORDERED: WARFARIN SODIUM 7.5 MG TAB PO SCH (17:00)
[2022-08-23] MEDS: ATORVASTATIN 40 MG TAB PO SCH (21:08)
[2022-08-23] MEDS ORDERED: ATORVASTATIN 40 MG TAB PO SCH (22:00)
[2022-08-24] MEDS: GABAPENTIN 400 MG CAP PO SCH ×2 (00:23→08:06)
[2022-08-24] MEDS: methocarbamoL 750 MG TAB PO SCH ×2 (00:23→08:07)
[2022-08-24] MEDS: ENOXAPARIN 100 MG/ML SYR SQ SCH ×2 (02:48→15:14)
[2022-08-24] MEDS: OXYCODONE HCL 5 MG TAB PO PRN (02:48)
[2022-08-24] MEDS: ONDANSETRON 4 MG/2 ML VIAL IV PRN ×2 (02:50→12:04)
[2022-08-24 04:04] LABS: Protime INR 1.35
--- NOTE | 2022-08-24 06:52 | ECHO ---
HEIGHT: 5 ft 10 in WEIGHT: 230 lb 0.132 oz DATE OF STUDY: 08/23/[address]: Michelet Coughlin NP 2-DIMENSIONAL: YES M.MODE: YES DOPPLER: YES COLOR FLOW: YES TDS: PORTABLE: YES DEFINITY: BUBBLE STUDY: DIAGNOSIS: CHEST PAIN CARDIAC HISTORY: CATHERIZATION: NO SURGERY: NO PROSTHETIC VALVE: NO PACEMAKER: NO MEASUREMENTS (cm) DIASTOLIC (NORMALS) SYSTOLIC (NORMALS) IVSd 1.0 (0.6-1.2) LA Diam 3.5 (1.9-4.0) LVEF 60% LVIDd 4.9 (3.5-5.7) LVIDs 3.4 (2.0-3.5) %FS 32% LVPWd 1.1 (0.6-1.2) Ao Diam 2.4 (2.0-3.7) 2 DIMENSIONAL ASSESSMENT: RIGHT ATRIUM: NORMAL LEFT ATRIUM: NORMAL RIGHT VENTRICLE: NORMAL LEFT VENTRICLE: NORMAL TRICUSPID VALVE: NORMAL MITRAL VALVE: TRACE MITRAL REGURGITATION PULMONIC VALVE: NORMAL AORTIC VALVE: NORMAL PERICARDIAL EFFUSION: NONE AORTIC ROOT: NORMAL LEFT VENTRICULAR WALL MOTION: NORMAL DOPPLER/COLOR FLOW: NORMAL COMMENTS: 1. NORMAL LEFT VENTRICULAR EJECTION FRACTION 55-60% 2. NORMAL WALL MOTION 3. TRACE MITRAL REGURGITATION TECHNOLOGIST: SOFYA JAMES
[2022-08-24] MEDS: SUCRALFATE 1 GM TABLET PO SCH ×2 (08:06→12:04)
[2022-08-24] MEDS: carvediloL 6.25 MG TAB PO SCH (08:06)
[2022-08-24] MEDS: PANTOPRAZOLE 40MG TABLET PO SCH (08:06)
[2022-08-24] MEDS: CLOPIDOGREL 75 MG TABLET PO SCH (08:06)
[2022-08-24] MEDS: FUROSEMIDE 20 MG TABLET PO SCH (08:07)
[2022-08-24] MEDS ORDERED: REGADENOSON 0.4 MG/5 ML SYR IV ONE (08:52)
[2022-08-24] MEDS ORDERED: MORPHINE 2 MG/ML SYR IV ONE (09:20)
[2022-08-24 11:47] VITALS: BP 129/74; TEMP 98.6
--- NOTE | 2022-08-24 20:13 | P.DS ---
Admission Date: 08/22/22 Discharge Date: 08/24/22 Disposition: ROUTINE DISCHARGE Discharge Condition: FAIR Reason for Admission: Chest pain, syncope Consultations: Cardiology - Dr. Stringer Brief History of Present Illness: 37-year-old male who reports history of factor V Leiden, chronic CHFunknown EF, hypertension, hyperlipidemia, GERD, chronic pain, CAD, MIRA presented emergency department for chest pain, syncope. He reports that he was eating dinner when he began to experience sharp pain with severe heaviness in his chest followed by 2 syncopal episodes. He denies similar episodes in the past and he reports he has been compliant with his Coumadin for factor V Leiden his labs were significant for INR 2.06 D-dimer 564 high-sensitivity troponin 4.9. Initially chest x-ray negative for acute findings CT head/C-spine negative for acute findings, bilateral venous Doppler lower extremities negative for acute findings/DVT. Patient allergic to IV iodine. Patient hospitalized for further management. Hospital Course: Problem List Chest pain. Factor V Leyden deficiency. History of thromboembolism. Patient presented with chest pain. Troponin remained WNL /negative, without any EKG changes. Chest x-ray without any acute findings and was breathing comfortably on room air. Cardiology was consulted - recommended echo and nuclear stress test. Stress testing was attempted twice. 1st was cancelled due to patient drinking coffee despite being told he was NPO. 2nd time, patient refused to have the stress test done. He reports he has taken coumadin for many years, [place] the [place] and his INR was just over 2 on admission. His INR did drop slightly, and patient was bridged with lovenox. Cardiology evaluated the patient, and stated stress test can be obtained as outpatient. Recommended to follow up in Cardiology office as soon as possible. Patient was deemed stable for discharge home. To continue his home coumadin dosing and continue bridging with lovenox. Discussed DOACs, which patient stated "did not work/ did not want experimental medication" Recommended follow up: PCP within 1 week INR level checked within a few days Continue lovenox until INR is therapeutic Patient had concerns administering the lovenox to himself due to past experiences / PTSD as he explained. Discussed having family members help him Vital Signs/Physical Exam: Temp Pulse Resp BP Pulse Ox 98.6 F 80 18 129/74 100 08/24/22 11:46 08/24/22 11:46 08/24/22 11:46 08/24/22 11:46 08/24/22 11:46 General: Alert, In no apparent distress, Oriented x3 HEENT: EOMI, Sclerae nonicteric Neck: Supple, No LAD Respiratory: Clear to auscultation bilaterally, Normal air movement Cardiovascular: No edema, Regular rate/rhythm, No murmurs Gastrointestinal: Soft and benign, Non-distended, No tenderness Musculoskeletal: No contractures, No tenderness Integumentary: No rashes, No breakdown Neurological: Normal speech, Normal strength at 5/5 x4 extr, Normal affect Laboratory Data at Discharge: WBC 4.30 K/uL (4.3-10.9) 08/23/22 03:44 Hgb 11.0 g/dL (13.6-17.9) L 08/23/22 03:44 Hct 34.1 % (39.6-49.0) L 08/23/22 03:44 Plt Count 353 K/uL (152-406) 08/23/22 03:44 PT 14.9 SECONDS (9.5-12.5) H 08/24/22 02:52 INR 1.35 08/24/22 02:52 APTT 52.8 SECONDS (24.3-36.9) H 08/21/22 22:08 Sodium 137 mmol/L (136-145) 08/23/22 03:44 Potassium 3.8 mmol/L (3.5-5.1) 08/23/22 03:44 BUN 15 mg/dL (7-18) 08/23/22 03:44 Creatinine 0.88 mg/dL (0.55-1.3) 08/23/22 03:44 Glucose 100 mg/dL (74-106) 08/23/22 03:44 Magnesium 2.0 mg/dL (1.8-2.4) 08/21/22 22:08 Total Bilirubin 0.3 mg/dL (0.2-1.0) 08/23/22 03:44 AST 6 U/L (15-37) L 08/23/22 03:44 ALT 26 U/L (12-78) 08/23/22 03:44 Alkaline Phosphatase 76 U/L (45-117) 08/23/22 03:44 Home Medications: Atorvastatin Calcium [Lipitor] 40 mg DAILY 08/22/22 Clopidogrel Bisulfate [Plavix] 75 mg DAILY 08/22/22 Diazepam [Valium] 10 mg PO Q8HR 08/22/22 Diphenhydramine HCl [Benadryl Allergy] 50 mg PO Q4HR PRN 08/22/22 Furosemide [Lasix] 20 mg PO DAILY 08/22/22 Gabapentin [Neurontin] 800 mg Q8HR 08/22/22 LORazepam [Ativan*] 1 mg PO Q4HR 08/22/22 Ondansetron [Zofran (Odt)*] 4 mg PO Q6HR 08/22/22 Pantoprazole Sodium [Protonix] 40 mg DAILY 08/22/22 Ranolazine [Ranolazine ER] 500 mg BID 08/22/22 Sucralfate [Carafate*] 1 g PO QID 08/22/22 Warfarin Sodium [Coumadin*] 5 mg PO DAILY 08/22/22 carvediloL [Coreg*] 6.25 mg BID 08/22/22 methocarbamoL [Robaxin*] 750 mg PO Q8HR 08/22/22 Enoxaparin Sodium [Lovenox 100 MG INJ*] 100 mg SQ Q12H 7 Days #14 syr 08/24/22 New Medications: Enoxaparin Sodium [Lovenox 100 MG INJ*] 100 mg SQ Q12H 7 Days #14 syr Physician Discharge Instructions: Patient presented with chest pain. Troponin remained WNL /negative, without any EKG changes. Chest x-ray without any acute findings and was breathing comfortably on room air. Cardiology was consulted. Stress testing was attempted twice. 1st was cancelled due to patient drinking coffee despite being told he was NPO. 2nd time, patient refused to have the stress test done. He reports he has taken coumadin for many years, [place] the [place] and his INR was just over 2 on admission. His INR did drop slightly, and patient was bridged with lovenox. Cardiology evaluated the patient, and stated stress test can be obtained as outpatient. Patient was deemed stable for discharge home. To continue his home coumadin dosing and continue bridging with lovenox. Recommended follow up: PCP within 1 week INR level checked within a few days Continue lovenox until INR is therapeutic Patient had concerns administering the lovenox to himself due to past experiences / PTSD as he explained. Discussed having family members help him Diet: AHA Activity: Ad nate Followup: Abdulaziz Stringer MD [ACTIVE - CAN ADMIT] - 1 Week (Please call office for arrangement for stress test.) NONE,NONE [Primary Care Provider] - 1 Week ( Call for appointment.) Time spent managing pt's care (in minutes): 45
== END 2022-08-24 16:04 | disposition home or self-care (01) ==
LOC: ER 21:39 → ERHOLD 08-22 01:42 → 4TH 08-22 18:47
PROVIDERS: ADMIT Internal Medicine; ATTEND Hospitalist
DX: R07.9 Chest pain, unspecified (principal); R55 Syncope and collapse; D68.51 Activated protein C resistance; I50.9 Heart failure, unspecified; I10 Essential (primary) hypertension; E78.5 Hyperlipidemia, unspecified; K21.9 Gastro-esophageal reflux disease without esophagitis; I25.10 Atherosclerotic heart disease of native coronary artery without angina pectoris; G47.33 Obstructive sleep apnea (adult) (pediatric); G89.29 Other chronic pain; Z86.718 Personal history of other venous thrombosis and embolism; Z79.01 Long term (current) use of anticoagulants; F41.9 Anxiety disorder, unspecified; Z20.822 Contact with and (suspected) exposure to COVID-19
CPT/HCPCS: 93005; 93306; 85025 ×3; 80048; 36415 ×2; 83735; 85610 ×4; 85379; 80076; 85730; 84484 ×3; 80053 ×2; 83880; 0240U; 80307; 70450; 72125; 71045; 73060; 93970; 96375; 96374; 99285; Q0169; J1650 ×3; J2270 ×9; J2405 ×7; G0378 ×4; J2550; J2785